=== PATIENT | male | born 1980 | race Caucasian/White ===

== ENCOUNTER → 2020-09-06 | Outpatient (CLI) | payer MEDICARE, OTHER ==
--- NOTE | 2020-09-06 08:31 | US ---
EXAMINATION TYPE: US scrotum with doppler. Grayscale and color Doppler Duplex imaging performed of t he scrotum. DATE OF EXAM: 09/06/2020 COMPARISON: None here, patient states US last week at [facility]. CLINICAL HISTORY: R93.41 abnormal diagnositc N50.8 Other specified dR93.41 abn. EXAM MEASUREMENTS: TESTICLES: Right Testicle: 3.5 x 1.4 x 2.1 cm Left Testicle: 4.6 x 2.1 x 4.0 cm EPIDIDYMIS HEAD: Right Epididymis: not seen Left Epididymis: 1.1 x 1.0 cm Doppler performed to assess for testicular vascularity; good bilateral color flow and waveforms are s een. There is no evidence of testicular torsion. Presence of hydroceles: Large fluid collection around left testicle measures 5.6 x 1.8 x 5.3 cm Right testicle is small in size and has microlithiasis. There are two solid masses side by side with vascularity, the first measures 0.9 x 0.7 x 0.8 cm, and the second measures 0.6 x 0.5 x 0.6 cm. IMPRESSION: 1. The right testicle is somewhat smaller in size contains evidence of microlithiasis can increase th e patient's risk of developing malignancy. Additionally: There are 2 solid appearing masses measuring 9 and 6 mm within the right testicle. They contain internal vascularity and are suspicious for neopl asm. 2. Large fluid collection surrounding the left testicle measuring 5.6 cm.
== END | disposition home or self-care (01) ==
LOC: RADUSWWP 07:46
PROVIDERS: ATTEND Urology
DX: N43.3 Hydrocele, unspecified (principal); N50.82 Scrotal pain
CPT/HCPCS: 76870; 82105; 93975

== ENCOUNTER → 2020-10-11 | Outpatient (CLI) | payer MEDICARE, OTHER ==
--- NOTE | 2020-10-11 09:10 | CT ---
EXAMINATION TYPE: CT ChestAbdPelvis w con DATE OF EXAM: 10/11/2020 COMPARISON: None HISTORY: Testicular cancer CT DLP: 1057 mGycm CONTRAST: CT scan of the chest, abdomen and pelvis is performed with Oral Contrast and with IV Contrast, patien t injected with 100 mL of Isovue 300. CT Chest: LUNGS: The lungs are clear and free of infiltrate or atelectasis. No pulmonary nodule or mass is det ected. No pleural effusion or CT evidence of interstitial lung disease. MEDIASTINUM: Thoracic aorta is of normal caliber. The heart is not enlarged. No evidence for media stinal mass or adenopathy. HILAR STRUCTURES: No evidence for mass. No hilar adenopathy is appreciated. OTHER: No significant abnormality. CONTRAST CT ABDOMEN AND PELVIS FINDINGS: LIVER/GB: No calcified gallstones. No space occupying hepatic lesion. Biliary tree is of normal ca liber. PANCREAS: No inflammation. No distinct mass. SPLEEN: No splenic enlargement. No lesion seen. ADRENALS: No nodule. No thickening. KIDNEYS/BLADDER: No hydronephrosis. No nephrolithiasis. No disctinct renal mass. BOWEL: Normal appendix. Normal bowel caliber. No inflammation. GENITAL ORGANS: No gross abnormality. LYMPH NODES: No greater than 1cm abdominal or pelvic lymph nodes are appreciated. AORTA: No significant abnormality. OSSEOUS STRUCTURES: No significant abnormality is seen. OTHER: No significant additional abnormality is seen. IMPRESSION: 1. No evidence for metastatic disease. Subcentimeter right inguinal lymph nodes identified.
== END | disposition home or self-care (01) ==
LOC: RADCTMAIN 06:47
PROVIDERS: ATTEND Urology
DX: C62.11 Malignant neoplasm of descended right testis (principal)
CPT/HCPCS: 71260; 74177; Q9967 ×2

== ENCOUNTER → 2021-04-11 | Outpatient (CLI) | payer MEDICARE, OTHER ==
[2021-04-11 07:50] LABS: African American GFR (CKD) >90 (>60 ml/min/1.73 sqM); Blood Urea Nitrogen 18 mg/dL (9-20); Non-African American GFR(CKD) >90 (>60 ml/min/1.73 sqM)
--- NOTE | 2021-04-11 11:28 | CT ---
EXAMINATION TYPE: CT abdomen pelvis wo/w con DATE OF EXAM: 04/11/2021 COMPARISON: 10/11/2020 HISTORY: 41-year-old male C6 2.11, Malignant neoplasm of descended right testis TECHNIQUE: Contiguous axial scanning of the abdomen and pelvis before and after administration of 100 ml Isovue 300 IV contrast. Delayed images through the kidneys and coronal/sagittal reconstructions performed. CT DLP: 1076 mGycm Automated exposure control for dose reduction was used. FINDINGS: Heart normal size without pericardial effusion. Lung bases clear without pleural effusion. No focal liver lesion or biliary ductal dilatation. Portal venous system is patent. Gallbladder, adrenal glands, kidneys, spleen, and pancreas within normal limits. No dilated small bowel, free fluid, or free air. No mesenteric or retroperitoneal lymph adenopathy. Normal appendix. Moderate stool burden. No perisplenic inflammatory change. Bladder is urine distended. Prostate gland is enlarged measuring 5.4 cm wide with heterogeneous enhan cement likely due to BPH. Stable borderline sized 1.1 cm right inguinal lymph node and additional smaller adjacent lymph nodes. The right testicle appears absent. There is a continued moderate to large left-sided hydrocele. Bones: Mild degenerative spurring of the hips. No osseous destructive process. IMPRESSION: 1. PROMINENT BUT NONENLARGED RIGHT INGUINAL LYMPH NODES MEASURING UP TO 1.1 CM, UNCHANGED FROM 021. THE PRIOR EXAM WAS REMEASURED FOR CONSISTENCY. NO EVIDENCE FOR METASTATIC DISEASE IN THE VISUALI ZED LOWER LUNGS, ABDOMEN, OR PELVIS. 2. THERE APPEARS TO BE PRIOR RIGHT ORCHIECTOMY. STABLE MODERATE TO LARGE LEFT SCROTAL HYDROCELE. 3. PROSTATOMEGALY AT 5.4 CM WIDE. CORRELATE WITH PSA AND PATIENT SYMPTOMS FOR POSSIBLE BPH.
== END | disposition home or self-care (01) ==
LOC: RADCTMAIN 06:53
PROVIDERS: ATTEND Radiology Radiation Oncology
DX: N43.3 Hydrocele, unspecified (principal); N40.0 Benign prostatic hyperplasia without lower urinary tract symptoms; Z85.47 Personal history of malignant neoplasm of testis
CPT/HCPCS: 82565; 84520; 74178; 36415; Q9967

== ENCOUNTER → 2022-04-13 | Outpatient (CLI) | payer MEDICARE, OTHER ==
[2022-04-13 11:30] LABS: African American GFR (CKD) >90 (>60 ml/min/1.73 sqM); Blood Urea Nitrogen 15 mg/dL (9-20); Non-African American GFR(CKD) >90 (>60 ml/min/1.73 sqM)
--- NOTE | 2022-04-13 12:48 | CT ---
EXAMINATION TYPE: CT abdomen pelvis wo/w con DATE OF EXAM: 04/13/2022 COMPARISON: 04/11/2021 HISTORY: Malignant neoplasm of descended right testicle CT DLP: 650.00 mGycm CONTRAST: CT scan of the abdomen and pelvis is performed with Oral Contrast and without and with IV Contrast, p atient injected with 70 ml mL of Isovue 300. FINDINGS: LUNG BASES-: No visible nodule. No infiltrate. LIVER/GB: No calcified gallstones. No space occupying hepatic lesion. Biliary tree is of normal ca liber. PANCREAS: No inflammation. No distinct mass. SPLEEN: No splenic enlargement. No lesion seen. ADRENALS: No nodule. No thickening. KIDNEYS/BLADDER: No hydronephrosis. No nephrolithiasis. No distinct renal mass. Urinary bladder g rossly unremarkable. BOWEL: Normal appendix. Normal bowel caliber. No inflammation. GENITAL ORGANS: Previous right-sided like activity. Left-sided hydrocele redemonstrated. LYMPH NODES: Previously noted mildly prominent right inguinal lymph node currently measures 9.3 mm v ersus 10.5 mm previously. No new or enlarging lymph nodes are seen within either inguinal region. No evidence for adenopathy within the abdomen or pelvis. AORTA: No significant abnormality. OSSEOUS STRUCTURES: No significant abnormality is seen. OTHER: No significant additional abnormality is seen. IMPRESSION: 1. Previously noted mildly prominent right inguinal lymph node currently measures 9.3 mm versus 10.5 mm previously. No new or enlarging lymph nodes are seen within either inguinal region. No evidence fo r adenopathy within the abdomen or pelvis.
== END | disposition home or self-care (01) ==
LOC: RADCTMAIN 10:32
PROVIDERS: ATTEND Radiology Radiation Oncology
DX: C62.11 Malignant neoplasm of descended right testis (principal); F17.210 Nicotine dependence, cigarettes, uncomplicated; Z92.3 Personal history of irradiation
CPT/HCPCS: 82565; 84520; 74178; 36415; Q9967